=== PATIENT | female | born 1990 | race Caucasian/White ===

== ENCOUNTER 2019-04-11 00:35 | Emergency (ER) | payer OTHER ==
[~2019-04-11] VITALS: Ht 154.9 cm; Wt 83.7 kg
[2019-04-11] MEDS ORDERED: IPRATROPIUM 0.5MG/ALBUTEROL 2.5MG INH SOL UD 3ML (DUONEB)(J7620) NEB ONE (01:00)
[2019-04-11] MEDS ORDERED: methylPREDNISolone INJ 125 MG/2 ML VIAL (J2930) IM ONE (01:00)
[2019-04-11 01:37] LABS: INFLUENZA A AMPLIFICATION NEGATIVE (NEGATIVE); INFLUENZA B AMPLIFICATION NEGATIVE (NEGATIVE)
[2019-04-11] MEDS ORDERED: PRED20TA PO (01:46)
[2019-04-11] MEDS ORDERED: PROAAER10 INH (01:48)
[2019-04-11] MEDS ORDERED: ALBUTEROL 90 MCG/ACT 8GM HFA INHALER As Ordered ONE (01:51)
[2019-04-11 01:53] VITALS: BP 133/78
[2019-04-11] MEDS ORDERED: ALBUTEROL 90 MCG/ACT 8GM HFA INHALER INH ONE (02:00)
--- NOTE | 2019-04-11 08:29 | REP ---
Chest x-ray: Two views. History: Short of breath . Comparison study: No comparison study . Findings: The lungs are well inflated and free of infiltrate. The pleural angles are sharp. The heart size is normal. Pulmonary vasculature is not increased. No significant bony abnormality is seen. Impression: Negative chest x-ray. Electronically Signed by Moe Burger MD 04/11/2019 08:20 A
== END 2019-04-11 01:55 | disposition home or self-care (01) ==
LOC: M ED 00:35
DX: J45.901 Unspecified asthma with (acute) exacerbation (principal)
CPT/HCPCS: 71046; 87502; 96372; 99283; J2930